=== PATIENT | male | born 1960 | race Caucasian/White ===

== ENCOUNTER 2021-10-24 21:43 | Emergency (ER) | payer BC ==
[~2021-10-24] VITALS: Ht 182.8 cm; Wt 85.4 kg
--- NOTE | 2021-10-24 22:04 | ED Upper Extremity ---
General Stated Complaint: HAND INJURY Source: patient History of Present Illness Date Seen by Provider: Oct 24, 2021 Time Seen by Provider: 22:00 Initial Comments PT ARRIVES VIA POV FROM HOME [place] ABOUT AN HOUR AGO, WHILE [place] A [place] IN [place], HE GOT A CATFISH ALAN EMBEDDED IN HIS RIGHT HAND, NEAR THE BASE OF HIS RIGHT THUMB HAD IMMEDIATE SEVERE PAIN TO THE AREA. TRIED TO PULL IT OUT WITHOUT RESULTS, SO CUT THE ALAN OFF AT THE LEVEL OF THE SKIN AND CAME HERE NO PARESTHESIAS OR MOTOR DEFICITS PT IS RIGHT HANDED NO PRIOR INJURIES OR PROBLEMS WITH THIS HAND HAS NOT TAKEN ANYTHING FOR PAIN LAST TETANUS SHOT WAS 2006 [facility] PCP: DR. MCKENZIE, AT [facility] Allergies and Home Medications Allergies Coded Allergies: No Known Drug Allergies (Unverified , 10/24/21) Patient Home Medication List Home Medication List Reviewed: Yes Amoxicillin/Potassium Clav (Augmentin 875-125 Tablet) 1 Each Tablet, 1 EACH PO BID Prescribed by: LOBITO DESAI on 10/24/212316 Doxycycline Hyclate (Doxycycline Hyclate) 100 Mg Tablet, 100 MG PO BID Prescribed by: LOBITO DESAI on 10/24/212316 Review of Systems Constitutional: no symptoms reported Musculoskeletal: see HPI Skin: see HPI Psychiatric/Neurological: No Symptoms Reported Past Zurokqh-Snhkmg-Hqchbt Hx Patient Social History Tobacco Use?: Yes (QUIT 20 YEARS AGO) Tobacco type used: Cigarettes Smoking Status: Former Smoker Substance use?: No Alcohol Use?: Yes Alcohol Frequency: Rarely Immunizations Up To Date Tetanus Booster (TDap): More than 5yrs Past Medical History Surgeries: Yes Tonsillectomy Respiratory: Yes COPD Cardiac: Yes Hypertension Neurological: No Genitourinary: No Gastrointestinal: No Musculoskeletal: No Endocrine: No HEENT: No Psychosocial: No Integumentary: No Blood Disorders: No Physical Exam Vital Signs Vital Signs - First Documented 10/24/21 22:05 Temp 37.0 Pulse 74 Resp 18 B/P (MAP) 141/83 (102) Pulse Ox 99 O2 Delivery Room Air Capillary Refill : Height, Weight, BMI Height: '" Weight: lbs. oz. kg; BMI Method: General Appearance: WD/WN, no apparent distress Hand: Right (DORSAL ASPECT OF RIGHT HAND WITH EMBEDDED CATFISH ALAN/SPINE NEAR BASE OF RIGHT THUMB. MILD TO MODERATE SURROUNDING ERYTHEMA AND EDEMA. MOTOR/SENSORY/VASCULAR INTACT. ) Neurologic/Tendon: normal sensation, normal motor functions, normal tendon functions Neurologic/Psychiatric: armature winder II-XII nml as tested, no motor/sensory deficits, alert, normal mood/affect, oriented x 3 Skin: normal color, warm/dry, other ( ABOVE) Procedures/Interventions I&D : Site: RIGHT HAND Blade Size: 11 I & D Procedure: sterile drapes applied, sterile dressing applied Progress AREA CLEANSED WITH BETASEPT TINY INCISION MADE ADJACENT TO THE ALAN, WITH A #11 BLADE APPROXIMATELY 2 CM CATFISH ALAN/SPINE REMOVED INTACT WOUND PROFUSELY IRRIGATED WITH STERILE SALINE DRESSED WITH BACTROBAN AND GAUZE PT TOLERATED WELL Progress/Results/Core Measures Results/Orders My Orders Orders - LOBITO DESAI DO Hand, Right, 3 Views (10/24/21 22:02) Dipht,Pertuss(Acell),Tet Adult (Boostrix (10/24/21 22:15) Lidocaine 1% Inj 20 Ml (Xylocaine 1% Inj (10/24/21 22:15) Wound Dressing-Ed (10/24/21 23:11) Amoxicillin/Clavulanate Tablet (Augmenti (10/25/21 08:00) Rx-Doxycycline Tablet (Rx-Vibramycin Tab (10/24/21 23:11) Acetaminophen Tablet (Tylenol Tablet) (10/24/21 23:15) Ibuprofen Tablet (Motrin Tablet) (10/24/21 23:15) Rx-Mupirocin 2% Oint (Rx-Bactroban) (10/24/21 23:13) Medications Given in ED Current Medications Medications Dose Ordered Sig/Salbador Route Start Time Stop Time Status Last Admin Dose Admin Acetaminophen 1,000 mg ONCE ONCE PO 10/24/21 23:15 10/24/21 23:16 DC 10/24/21 23:25 1,000 MG Diphtheria/ Tetanus/Acell Pertussis 0.5 ml ONCE ONCE IM 10/24/21 22:15 10/24/21 22:16 DC 10/24/21 22:36 0.5 ML Ibuprofen 800 mg ONCE ONCE PO 10/24/21 23:15 10/24/21 23:16 DC 10/24/21 23:25 800 MG Lidocaine HCl 20 ml UD ONCE IJ 10/24/21 22:15 10/24/21 22:16 DC 10/24/21 22:59 20 ML Vital Signs/I&O 10/24/21 10/24/21 22:05 23:26 Temp 37.0 Pulse 74 75 Resp 18 18 B/P (MAP) 141/83 (102) 136/80 Pulse Ox 99 99 O2 Delivery Room Air Room Air Progress Progress Note : Progress Note DPT GIVEN Diagnostic Imaging Comments XRAYS RIGHT HAND--FOREIGN BODY NOTED IN SOFT TISSUES, NO BONY ABNORMALITY. PENDING RADIOLOGIST REVIEW Reviewed: Reviewed by Me Departure Communication (Admissions) 2188--SPOKE WITH DR. GUERRERO, HE WILL FOLLOW UP WITH PT IN THE OFFICE THIS WEEK. Impression Primary Impression: CATFISH STING AND EMBEDDED ALAN Additional Impression: EARLY CELLULITIS RIGHT HAND Disposition: HOME, SELF-CARE Condition: Stable Departure-Patient Inst. Decision time for Depature: 23:14 Referrals: ERNST GUERRERO DO Patient Instructions: Cellulitis (Skin Infection), Adult (DC), Diphtheria and Tetanus Toxoids, and Acellular Pertussis Vaccine, Foreign Body in Skin (DC) Add. Discharge Instructions: CLEAN WOUND TWICE A DAY WITH ANTIBACTERIAL SOAP AND WATER, APPLY ANTIBIOTIC OINTMENT AND FRESH DRESSING TWICE A DAY ICE TO AREA AT 20 MINUTE INTERVALS ELEVATE HAND MUCH POSSIBLE TYLENOL 1 GRAM PLUS MOTRIN 800 MG 4 TIMES A DAY FOR PAIN OR FEVER FOLLOW UP WITH DR. GUERRERO, SURGEON, OR YOUR REGULAR DR IN 1-2 DAYS FOR FURTHER CARE, RETURN TO ER IF WORSE Scripts Amoxicillin/Potassium Clav (Augmentin 875-125 Tablet) 1 Each Tablet 1 EACH PO BID, #20 TAB Prov: LOBITO DESAI DO 10/24/21 Doxycycline Hyclate (Doxycycline Hyclate) 100 Mg Tablet 100 MG PO BID, #20 TAB 0 Refills Prov: LOBITO DESAI DO 10/24/21 LOBITO DESAI DO Oct 24, 2021 22:04
[2021-10-24] MEDS ORDERED: TETANUS,DIPTH,PERTUSS P/F (BOOSTRIX) 0.5 ML VIAL IM ONE (22:15)
[2021-10-24] MEDS ORDERED: LIDOCAINE 1% INJ 20 ML VIAL IJ ONE (22:15)
[2021-10-24] MEDS ORDERED: RX-DOXYCYCLINE 100 MG (VIBRAMYCIN) TAB PPK#2 PO STA (23:11)
[2021-10-24] MEDS ORDERED: RX-MUPIROCIN (BACTROBAN) 2% OINT 22 GM TUBE TOP STA (23:13)
[2021-10-24] MEDS ORDERED: IBUPROFEN 800 MG (MOTRIN) TAB PO ONE (23:15)
[2021-10-24] MEDS ORDERED: ACETAMINOPHEN 500 MG TAB (TYLENOL) PO ONE (23:15)
[2021-10-24] MEDS ORDERED: AMOX-358 PO (23:17)
[2021-10-24] MEDS ORDERED: DOXY100T2 PO (23:17)
[2021-10-24 23:26] VITALS: BP 136/80
--- NOTE | 2021-10-25 07:55 | Diagnostic Imaging Report ---
Indication: Right hand pain. FINDINGS: 3 views. No fractures or dislocations. Carpal bones show good alignment. Mild arthritic changes noted throughout the inner phalangeal joint. IMPRESSION: No acute abnormalities noted. Dictated by: Dictated on workstation # [id number]
[2021-10-25] MEDS ORDERED: AUGMENTIN 875 MG TAB (AMOXICILLIN/CLAVULANATE) PO SCH (08:00)
== END 2021-10-24 23:38 | disposition home or self-care (01) ==
LOC: ER 21:48
DX: S60.351A Superficial foreign body of right thumb, initial encounter (principal); L03.113 Cellulitis of right upper limb; Z23 Encounter for immunization; W56.52XA Struck by other fish, initial encounter
CPT/HCPCS: 73130; 90715